=== PATIENT | female | born 1965 | race Caucasian/White ===

== ENCOUNTER 2022-12-14 15:51 | Emergency (ER) | payer OTHER, SELFPAY ==
[2022-12-14 16:06] VITALS: BP 140/64; PULSE 100; RESP 18; TEMP 36.7; BMI 31.8
--- NOTE | 2022-12-14 16:09 | ED_ITS ---
HPI - General Adult General Chief complaint: Upper Respiratory Symptoms Stated complaint: Fever/congestion/cough/weakness Time Seen by Provider: 12/14/22 18:32 Source: patient Mode of arrival: ambulatory Limitations: no limitations History of Present Illness HPI narrative: 57-year-old female previously healthy here with 1 day of subjective fevers, cough, congestion, sore throat, itching eyes bilaterally with drainage. Patient denies chest pain, shortness of breath, vomiting, diarrhea, abdominal pain. Related Data Allergies Allergy/AdvReac Type Severity Reaction Status Date / Time No Known Allergies Allergy Verified 12/14/22 16:07 Review of Systems Review of Systems: Yes all other systems are reviewed and are negative Constitutional: Constitutional: Reports no additional constitutional complaints, Denies body ache(s), Denies chills, Reports fever(s), Denies headache(s) and Denies weakness Eyes: Eyes: Reports no additional eye complaints, Denies change in vision, Reports eye discharge and Reports itchy eyes ENT: Reports system reviewed and no additional complaints, except as documented, Denies dizziness, Denies headache(s), Denies nasal congestion, Reports nasal discharge, Denies neck pain and Reports sore throat Cardiovascular: Cardiovascular: Reports no additional cardiovascular complaints, Denies chest pain, Denies leg edema and Denies dyspnea Respiratory: Respiratory: Reports no additional respiratory complaints, Reports cough and Denies dyspnea Gastrointestinal: Gastrointestinal: Reports no additional gastrointestinal complaints, Denies abdominal pain, Denies diarrhea, Denies nausea and Denies vomiting Genitourinary: Genitourinary: Reports no additional female genitourinary complaints and Denies urinary incontinence Musculoskeletal: Musculoskeletal: Reports no additional musculoskeletal complaints, Denies back pain, Denies arthralgias, Denies joint swelling, Denies neck pain, Denies numbness and Denies tingling Integumentary/Breasts: Skin/Breast: Reports system reviewed and no additional complaints, except as docu and Denies rash Neurologic: Reports system reviewed and no additional complaints, except as documented, Denies dizziness, Denies headache(s), Denies numbness, Denies tingling and Denies weakness Allergic/Immunologic: Allergic/Immunologic: Reports itchy eyes PMFSH Past Medical History Attestation statement: The following information was validated with the patient. Source: old records reviewed and nursing notes reviewed Social History Social History Alcohol intake: never Smoked in Last 30 Days: No Use of substances other than those prescribed or required for medical reasons: No Advance Directives: No Advance Directives Information Provided: No Physical Exam ED Vital Signs: Vital Signs - 24 hr 12/14/22 16:06 12/14/22 19:15 Temperature 98.0 F Pulse Rate 100 102 H Respiratory Rate 18 16 Blood Pressure 140/64 H 133/66 Pulse Oximetry 95 Oxygen Delivery Method Room Air Room Air BMI result Body Mass Index 31.8 Const General: cooperative, healthy appearing, comfortable and no acute distress Orientation/consciousness: patient oriented x3 Limitations: no limitations HENMT Head: Yes normal to inspection Ears: hearing grossly normal bilaterally and TM's normal bilaterally Face and sinus: Yes normal facial exam Throat: Yes posterior oropharynx normal, Yes tonsils normal and Yes uvula midline Eyes General: appearance normal, both eyes and all related structures Pupils: Equal, round and reactive pupils present Neck Neck: Yes normal visual inspection, Yes full ROM, Yes no lymphadenopathy and Yes no meningeal signs Chest Chest palpation & inspection: normal inspection of the chest Resp Effort & Inspection: normal respiratory effort Auscultation: clear to auscultation bilaterally Cardio Rate: regular rate Rhythm: regular rhythm Peripheral pulses: Peripheral pulses 2+ throughout GI Inspection: Yes normal to inspection Palpation (GI): Soft to palpation and nontender Skin General skin exam: no rashes or lesions noted Neuro General: patient oriented x3, moves all extremities and no meningeal signs Cranial nerves: Yes Equal, round and reactive pupils present Cognition (Neuro): normal cognition Gait exam (Neuro): Normal gait present Extrem General: Yes normal to inspection, Yes no pedal edema and Yes no calf tenderness Course Course Course Narrative: 57 yold female presents to the ED for fever, congestion, runny nose after going to bridal shower yesterday. covid and influenza ordered. patient states no chest pain or shortness of breath. Covid, influenza ordered Medical Decision Making Medical Decision Making [facility] Narrative: 57-year-old female here with URI symptoms starting today also with bilateral eye itching and drainage. Patient had COVID and flu testing done in triage Her exam is benign Likely viral syndrome with viral conjunctivitis Recommend supportive care and follow-up with primary care for any persistent symptoms Differential Diagnosis Differential Diagnoses: The differential diagnosis associated with the presentation includes Influenza, viral syndrome, otitis media, strep pharyngitis Lab Data MDM Lab Attestation statement: I reviewed the patient's lab results. Labs: Lab Results 12/14/22 12/14/22 Range/Units 16:11 16:11 COVID-19 (ROSHNI) Negative (Negative) COVID-19 Clin Com See Note Influenza Type A (MIKAEL) Negative (Negative) Influenza Type B (MIKAEL) Negative (Negative) Influenza A & B Note See Note Discharge Plan Discharge Clinical Impression: Viral infection Patient Disposition: Home, Self-Care Instructions: Viral Syndrome (ED) Additional Instructions: Your testing for flu and COVID are negative You likely have a viral Increase fluids, rest Take Motrin or Tylenol for pain or fever as needed See your primary care doctor this week for persistent symptoms Referrals: Physician,None [Primary Care Provider] - Stand Alone Forms: Work/School Release Interventions: ED Discharge Assessment Last Done: 12/14/22 19:16 Discharge Date/Time: 12/14/22 19:18
[2022-12-14 16:35] LABS: COVID-19 Test Negative (Negative); IDNOW Serial# 55D5AD1C
[2022-12-14 16:37] LABS: IDNOW Serial# 9DB6401D; Influenza A Negative (Negative); Influenza B2 Negative (Negative)
[2022-12-14 19:15] VITALS: BP 133/66; PULSE 102; RESP 16; O2SAT 95
== END 2022-12-14 19:18 | disposition home or self-care (01) ==
PROVIDERS: Physician Assistant; Emergency Provider Internal Medicine
DX: B34.9 Viral infection, unspecified (principal); Z20.822 Contact with and (suspected) exposure to COVID-19; Z20.828 Contact with and (suspected) exposure to other viral communicable diseases
CPT/HCPCS: 87502; 87635; 99283; 99284

== ENCOUNTER 2023-06-12 19:03 | Emergency (ER) | payer OTHER, SELFPAY ==
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
[2023-06-12 19:22] VITALS: BP 144/66; PULSE 94; O2SAT 99
[2023-06-12 19:27] VITALS: BP 165/99; PULSE 82; RESP 24; TEMP 36.7; O2SAT 94
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
[2023-06-12] MEDS: Acetaminophen 325 MG TABLET 975 MG PO (20:51)
[2023-06-12] MEDS: LORazepam 1 MG TABLET PO (20:51)
[2023-06-12 20:54] VITALS: BP 134/46; PULSE 78; RESP 24; TEMP 36.5; O2SAT 97
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
[2023-06-12 21:29] VITALS: BP 147/59; PULSE 70; RESP 16; TEMP 36.9; O2SAT 96
== END 2023-06-12 21:41 | disposition home or self-care (01) ==
PROVIDERS: Emergency Provider Emergency Medicine
DX: S89.91XA Unspecified injury of right lower leg, initial encounter (principal); S89.92XA Unspecified injury of left lower leg, initial encounter; F41.1 Generalized anxiety disorder; F43.0 Acute stress reaction; R06.82 Tachypnea, not elsewhere classified; V43.52XA Car driver injured in collision with other type car in traffic accident, initial encounter; Y93.9 Activity, unspecified; Y92.410 Unspecified street and highway as the place of occurrence of the external cause; Y99.9 Unspecified external cause status
CPT/HCPCS: 71045; 93005; 99283; 99285

== ENCOUNTER → 2023-06-12 20:09 | Outpatient (BNV) | payer OTHER, SELFPAY | PROVIDERS: Emergency Provider Emergency Medicine; Visit Provider Internal Medicine | DX: R55 Syncope and collapse (principal) | CPT/HCPCS: 93010 ==

== ENCOUNTER 2023-08-14 16:28 | Emergency (ER) | payer OTHER, SELFPAY ==
--- NOTE | ~2023-08-14 | XR_ITS ---
Examination: Left knee and AP pelvis and right hip. Clinical indications: Pain, fall. TECHNIQUE: Left knee 4 views. AP pelvis and right hip 3 views. FINDINGS: AP PELVIS: There is normal symmetry of bilateral SI joints and hip joints. No visible fracture or dislocation seen. AP and frog-leg views right hip reveals no bony erosive changes, loose bodies or joint effusion. The soft tissues are normal. LEFT KNEE: There is minimal loss of tricompartment joint space but no bony erosive changes, loose bodies or enthesophytes. No abnormal joint effusion. No visible acute fracture or dislocation. XR/XR knee LT 4V IMPRESSION: Minimal early degenerative changes left knee. Unremarkable right hip exam.
--- NOTE | ~2023-08-14 | XR_ITS ---
Examination: Left knee and AP pelvis and right hip. Clinical indications: Pain, fall. TECHNIQUE: Left knee 4 views. AP pelvis and right hip 3 views. FINDINGS: AP PELVIS: There is normal symmetry of bilateral SI joints and hip joints. No visible fracture or dislocation seen. AP and frog-leg views right hip reveals no bony erosive changes, loose bodies or joint effusion. The soft tissues are normal. LEFT KNEE: There is minimal loss of tricompartment joint space but no bony erosive changes, loose bodies or enthesophytes. No abnormal joint effusion. No visible acute fracture or dislocation. XR/XR hip RT min 2V IMPRESSION: Minimal early degenerative changes left knee. Unremarkable right hip exam.
[2023-08-14 16:41] VITALS: BP 140/88; PULSE 79; RESP 18; TEMP 37.2; O2SAT 97; BMI 30.9
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
[2023-08-14 19:34] VITALS: PULSE 70; RESP 18
[2023-08-14 19:52] VITALS: BP 133/58; PULSE 62; RESP 16; TEMP 36.6
[2023-08-14] MEDS: Acetaminophen 325 MG TABLET 975 MG PO (19:55)
[2023-08-14] MEDS: Ibuprofen 600 MG TABLET PO (19:56)
== END 2023-08-14 20:45 | disposition home or self-care (01) ==
PROVIDERS: Emergency Provider Emergency Medicine
DX: S70.01XA Contusion of right hip, initial encounter (principal); S80.02XA Contusion of left knee, initial encounter; W18.39XA Other fall on same level, initial encounter; Y93.89 Activity, other specified; Y92.219 Unspecified school as the place of occurrence of the external cause; Y99.0 Civilian activity done for income or pay
CPT/HCPCS: 73502; 73564; 99283; 99284

== ENCOUNTER → 2023-08-17 12:47 | Outpatient (BNVA) | payer OTHER, SELFPAY | PROVIDERS: Visit Provider Physician Assistant Medical | DX: Z09 Encounter for follow-up examination after completed treatment for conditions other than malignant neoplasm (principal); S70.01XA Contusion of right hip, initial encounter; S80.01XA Contusion of right knee, initial encounter; S39.012A Strain of muscle, fascia and tendon of lower back, initial encounter; W01.0XXA Fall on same level from slipping, tripping and stumbling without subsequent striking against object, initial encounter | CPT/HCPCS: 99203 ==

== ENCOUNTER → 2023-08-21 09:44 | Outpatient (BNVA) | payer OTHER, SELFPAY | PROVIDERS: Visit Provider Physician Assistant | DX: S70.01XA Contusion of right hip, initial encounter (principal); S39.012A Strain of muscle, fascia and tendon of lower back, initial encounter; S80.01XA Contusion of right knee, initial encounter; W01.0XXA Fall on same level from slipping, tripping and stumbling without subsequent striking against object, initial encounter | CPT/HCPCS: 99214 ==

== ENCOUNTER → 2023-09-02 13:57 | Outpatient (BNVA) | payer OTHER, SELFPAY | PROVIDERS: Visit Provider Physician Assistant | DX: M25.551 Pain in right hip (principal); M54.50 Low back pain, unspecified; M25.562 Pain in left knee | CPT/HCPCS: 99213 ==

== ENCOUNTER → 2023-09-16 16:04 | Outpatient (BNVA) | payer OTHER, SELFPAY | PROVIDERS: Visit Provider Physician Assistant | DX: M25.551 Pain in right hip (principal); M54.50 Low back pain, unspecified | CPT/HCPCS: 99213 ==

== ENCOUNTER → 2023-09-30 16:00 | Outpatient (BNVA) | payer OTHER, SELFPAY | PROVIDERS: Visit Provider Physician Assistant | DX: M25.551 Pain in right hip (principal); M54.50 Low back pain, unspecified; M25.562 Pain in left knee | CPT/HCPCS: 99203 ==

== ENCOUNTER 2023-10-29 19:26 | Outpatient (REF) | payer OTHER, SELFPAY ==
--- NOTE | ~2023-10-29 | MR_ITS ---
EXAMINATION: MR LUMBAR SPINE WITHOUT CONTRAST CLINICAL INFORMATION: 58-year-old with persistent right-sided low back pain. COMPARISON: None available. TECHNIQUE: MRI of the lumbar spine was obtained using routine sequences without contrast. FINDINGS: Coronal Alignment: Normal. Sagittal Alignment: Trace retrolisthesis at L4-L5 noted. Otherwise normal lumbosacral alignment. Lumbosacral Junction: Normal. Vertebral Bodies: Vertebral body heights are well-maintained. Disc Spaces and Endplates: Moderate disc volume loss at L5-S1 noted with disc desiccation and minor spondylosis. Mild the disc volume loss at L4-L5 with Schmorl's nodes, disc desiccation and minor spondylosis. Minimal disc volume loss at the L3-L4 with disc desiccation, Schmorl's node and mild spondylosis. Minor disc volume loss at L2-L3 with a Schmorl's node, disc desiccation and mild spondylosis. Spinal Canal: No abnormal developmental findings. Bone Marrow: Type I degenerative marrow signal changes are seen along the endplates at L4-L5, L3-L4 and L2-L3 with type II marrow signal changes seen along the inferior endplate of L2 and along the endplates at L4-L5 and L5-S1. No suspicious marrow replacing process or bone marrow edema. Conus Medullaris: Terminates at L1. Morphology and signal is normal. Intradural Nerve Roots: Within normal limits. L5-S1: Minor disc bulging noted with minimal indentation of the ventral thecal sac. Mild facet hypertrophic change bilaterally. No significant canal or neuroforaminal stenosis. No neural impingement. L4-L5: Mild disc bulging is noted with a small right subarticular to inferior foraminal disc protrusion. Slight flattening of the ventral dural sac is noted. Ligamentum flavum thickening is noted with moderate bilateral facet joint hypertrophic degenerative changes. No significant canal stenosis. Mild neural foraminal narrowing noted bilaterally without neural impingement. L3-L4: Disc bulging and a superimposed shallow central disc protrusion with mild indentation of the ventral thecal sac slightly asymmetric to the left. Ligamentum flavum thickening asymmetric to the left and mild to moderate bilateral facet joint arthropathy noted. No significant canal stenosis. Minor foraminal narrowing noted on the left without neural impingement. L2-L3: Minor annular bulging with minimal indentation of the ventral thecal sac noted. Mild facet joint arthropathy bilaterally. No significant canal or neuroforaminal stenosis. L1-L2: Tiny left central disc protrusion. Minor facet joint arthropathy bilaterally. No canal or foraminal stenosis. Paravertebral and Included Extraspinal Soft Tissues: The visualized paravertebral soft tissues and included retroperitoneal structures are unremarkable within the limitations of the exam. MR/MR lumbar spine wo con IMPRESSION: 1. Trace retrolisthesis at L4-L5 noted with otherwise normal spinal alignment. 2. Multilevel discogenic degenerative changes between L2-L3 and L5-S1 inclusive with multilevel disc bulging and multilevel small disc protrusions as detailed by level above without definite neural impingement. 3. Multilevel bilateral facet joint arthropathy, most apparent at L4-L5. No significant spinal canal stenosis. Mild degrees of neural foraminal narrowing noted bilaterally at L4-L5 and on the left at L3-L4 without neural impingement.
== END 2023-10-29 19:27 | disposition home or self-care (01) ==
LOC: HO.MRI 19:26
PROVIDERS: Visit Provider Internal Medicine
DX: M54.50 Low back pain, unspecified (principal)
CPT/HCPCS: 72148

== ENCOUNTER → 2023-11-04 15:59 | Outpatient (BNVA) | payer OTHER, SELFPAY | PROVIDERS: Visit Provider Physician Assistant | DX: S70.01XD Contusion of right hip, subsequent encounter (principal); S39.012D Strain of muscle, fascia and tendon of lower back, subsequent encounter; W01.0XXD Fall on same level from slipping, tripping and stumbling without subsequent striking against object, subsequent encounter | CPT/HCPCS: 99214 ==

== ENCOUNTER → 2023-11-25 15:54 | Outpatient (BNVA) | payer OTHER, SELFPAY | PROVIDERS: Visit Provider Physician Assistant | DX: M25.551 Pain in right hip (principal); M54.50 Low back pain, unspecified | CPT/HCPCS: 99213 ==